=== PATIENT | male | born 2000 | race Caucasian/White ===

== ENCOUNTER 2020-10-03 12:39 | Emergency (ER) | payer SELFPAY ==
[2020-10-03 12:40] VITALS: BP 112/58; PULSE 73; RESP 15; TEMP 36.6; O2SAT 97; BMI 28.7
--- NOTE | 2020-10-03 12:48 | EX.ED.VIS.PS ---
HPI HPI - Psych History of Present Illness Chief Complaint: Mental Health Narrative Narrative: 19-year-old male with history of depression presenting with suicidal ideation. He has a plan to shoot himself with his gun. He denies taking any medication. He denies homicidal ideation. He states he just does not have any love for himself and his heart. PFSH PFSH Medical History Depression Hernia Home Medications NK 10/03/20 [History Last Taken Unknown] Allergy/AdvReac Type Severity Reaction Status Date / Time No Known Allergies Allergy Verified 10/03/20 12:44 Social History Smoking Status: Current every day smoker tobacco type: cigarettes ROS ROS ED Constitutional Constitutional ED: Denies chills, fever(s) or subjective Eyes Eyes: Denies blurry vision or diplopia ENT ENT ED: Denies rhinorrhea or sore throat Cardiovascular Cardiovascular: Denies chest pain or palpitations Respiratory/Chest Respiratory/Chest: Denies cough or dyspnea Gastrointestinal Gastrointestinal: Denies abdominal pain, nausea or vomiting Genitourinary Genitourinary ED: Denies dysuria or hematuria Musculoskeletal Musculoskeletal: Denies arthralgias or myalgias Integumentary Denies abscess or rash Neurologic Neurologic: Denies headache(s) or paresthesias Psychiatric Psychiatric: Reports depression, suicidal ideation and suicidal thoughts EXAM Physical Exam Const Vital Signs: 10/03/20 12:40 Temperature 97.9 F Temperature Source Temporal Pulse Rate 73 Respiratory Rate 15 Blood Pressure 112/58 L Blood Pressure Mean 76 Pulse Ox 97 Oxygen Delivery Method Room Air Positive well nourished General Appearance ED: NAD HEENT Reports moist mucous membranes normocephalic and atraumatic Eyes PERRL and EOMs intact bilaterally Resp normal respiratory effort and clear to auscultation bilaterally Cardio Rate: regular rate Rhythm: regular rhythm Neuro oriented x3 Sensorium / Orientation: alert and oriented to person Psych denies hallucinations and denies homicidal ideation Psych Narrative: Flat affect Thought Content: suicidality Attention / Concentration: attention grossly intact Memory / Cognition: memory grossly intact Insight: poor Judgement: poor Skin Lesions: no lesions Rashes: no rashes MDM MDM MDM Narrative Medical decision making narrative: Patient presenting with suicidal ideation and plan to shoot himself in the head with a gun. I feel the patient would benefit from inpatient therapy. His lab work-up today is unremarkable. Urine drug screen is negative. EtOH is negative. Patient is medically clear at this time for psychiatric evaluation. Patient was evaluated by social work and they also feel patient would benefit from inpatient therapy. She is currently looking for a bed for him. Patient will be signed out to incoming ED physician for monitoring until transfer can be completed Impression: 1. Suicidal ideation Lab Data Labs: Laboratory Results - last 24 hr 10/03/20 10/03/20 10/03/20 13:05 13:30 13:30 WBC 7.8 RBC 5.87 Hgb 15.8 Hct 49.6 MCV 84.5 MCH 26.9 L MCHC 31.9 L RDW Std Deviation 37.1 RDW Coeff of Kimberly 12.1 Plt Count 247 MPV 11.1 Immature Gran % (Auto) 0.300 Neut % (Auto) 68.8 Lymph % (Auto) 18.8 L Charlotte % (Auto) 6.7 Eos % (Auto) 4.5 Baso % (Auto) 0.9 Absolute Neuts (auto) 5.4 Absolute Lymphs (auto) 1.46 Nucleated RBC % 0 Sodium 138 Potassium 4.1 Chloride 102 Carbon Dioxide 30.0 Anion Gap 6 BUN 12 Creatinine 1.03 Estim Creat Clear Calc 118.12 Est GFR (MDRD) Af Amer 117 Est GFR (MDRD) Non-Af 97 BUN/Creatinine Ratio 11.7 Glucose 93 Calcium 9.4 Urine Opiates Screen NEGATIVE Urine Methadone Screen NEGATIVE Ur Barbiturates Screen NEGATIVE Ur Phencyclidine Scrn NEGATIVE Ur Amphetamines Screen NEGATIVE U Methamphetamin-MDMA NEGATIVE U Benzodiazepines Scrn NEGATIVE Urine Cocaine Screen NEGATIVE U Cannabinoids Screen NEGATIVE Ur Drug Screen Comment Ethyl Alcohol 10/03/20 13:30 WBC RBC Hgb Hct MCV MCH MCHC RDW Std Deviation RDW Coeff of Kimberly Plt Count MPV Immature Gran % (Auto) Neut % (Auto) Lymph % (Auto) Charlotte % (Auto) Eos % (Auto) Baso % (Auto) Absolute Neuts (auto) Absolute Lymphs (auto) Nucleated RBC % Sodium Potassium Chloride Carbon Dioxide Anion Gap BUN Creatinine Estim Creat Clear Calc Est GFR (MDRD) Af Amer Est GFR (MDRD) Non-Af BUN/Creatinine Ratio Glucose Calcium Urine Opiates Screen Urine Methadone Screen Ur Barbiturates Screen Ur Phencyclidine Scrn Ur Amphetamines Screen U Methamphetamin-MDMA U Benzodiazepines Scrn Urine Cocaine Screen U Cannabinoids Screen Ur Drug Screen Comment Ethyl Alcohol < 3.0 Discharge Plan Triage Chief Complaint: Mental Health ED Provider: Douglas Logan Dx/Rx/DC Orders Prescriptions: No Action NK RF: 0 Primary Care Provider: Care Physician,No Primary
--- NOTE | 2020-10-03 13:21 | ED.RN ---
PT STATES HE HAS BEEN DEPRESSED, FEELS EMPTY INSIDE FOR PAST 3 YEARS. STATES GOD LEFT ME AND HE'S STRUGGLED SINCE. PT ADMITS TO HAVING FREQUENT SUICIDAL THOUGHT, HAS PLAN OF EITHER SHOOTING SELF WITH A GUN OR HANGING SELF. PT HAS ACCESS TO GUNS, HAS GOTTEN A GUN AND HELD IT IN WITH THE PLAN OF SHOOTING SELF IN THE PAST YEAR. PT STATES HE'S GOTTEN WORSE SINCE YESTERDAY, I KNEW IF I DIDN'T GET HELP I WOULD KILL MYSELF TODAY. PT STATES HE HADN'T DECIDED IF HE WOULD USE GUN OR HANGING FOR ATTEMPT TODAY. PT REMAINS COOPERATIVE. DOES NOT WANT TO HAVE VISITORS TODAY THOUGH.
[2020-10-03 13:40] LABS: Absolute Lymphocyte Count 1.46 X10^3/uL (0.83-4.51); Absolute Neutrophil Count 5.4 X10^3/uL (2.0-7.7); Basophil# 0.07 X10^3/uL; Basophil% 0.9 % (0-1); Eosinophil# 0.35 X10^3/uL; Eosinophils% 4.5 % (0-5); Hematocrit 49.6 % (40-54); Hemoglobin 15.8 g/dL (13.0-16.5); Lymphocyte # 1.46 X10^3/ul (0.83-4.51); Lymphocyte % 18.8 % (19-41); Mean Corp Hgb Conc 31.9 g/dL (32-36); Mean Corpuscular Hgb 26.9 pg (27.0-32.0); Mean Corpuscular Volume 84.5 fL (80-94); Mean Platelet Vol. 11.1 fl (6.2-12.0); Monocyte# 0.52 X10^3/uL; Monocyte% 6.7 % (0-10); NRBC Flagged by Analyzer 0 % (0-5); Neutrophil # 5.36 X10^3/uL (2.7-7.7); Neutrophil % 68.8 % (47-70); Platelet Count 247 K/mm3 (150-450); RBC Distribution Width CV 12.1 % (11.6-14.6); RBC Distribution Width SD 37.1 fl (35.1-43.9); Red Blood Count 5.87 M/mm3 (4.6-6.2); White Blood Count 7.8 K/mm3 (4.4-11.0)
[2020-10-03 13:50] LABS: Anion Gap 6 (5-15); BUN 12 mg/dL (7-18); BUN/Creat Ratio 11.7 RATIO (10-20); Calcium,Total 9.4 mg/dL (8.5-10.1); Chloride 102 mmol/L (98-107); Creatinine, Serum 1.03 mg/dL (0.70-1.30); EST Glomerular Filtration Rate 97 mL/min (>60); Est Glom Filt Rate - Afr Amer 117 mL/min (>60); Estimated Creatinine Clearance 118.12 ml/min; Glucose 93 mg/dL (74-106); Potassium 4.1 mmol/L (3.5-5.1); Sodium Level 138 mmol/L (136-145)
[2020-10-03 13:53] LABS: Amphetamine Urine VISTA NEGATIVE (<1000 ng/mL); Barbiturate Urine VISTA NEGATIVE (< 200 ng/mL); Benzodiazepine Urine VISTA NEGATIVE (< 200 ng/mL); Cocaine Urine VISTA NEGATIVE (< 300 ng/mL); Ecstacy Urine VISTA NEGATIVE (< 500 ng/mL); Methadone Urine VISTA NEGATIVE (< 300 ng/mL); PCP Urine VISTA NEGATIVE (< 25 ng/mL); THC Urine VISTA NEGATIVE (< 50 ng/mL); Vista UDS pH Range 6
[2020-10-03 14:12] LABS: Alcohol, Blood (Medical)-Serum < 3.0 mg/dL
--- NOTE | 2020-10-03 14:30 | CM.ED ---
SOCIAL WORK ASSESSMENT Referral Source: Reason for Consult: Mental Health Chief Compliant: Patient presents to the ED and when asked about patient?s current presentation he said he felt suicidal. Patient confirms that he is currently feeling suicidal. Patient said that he has felt suicidal ?on and off? for 3 years. Patient was asked about his presentation to the ED today and patient said, ?I was feeling suicidal... that?s it? and indicated he called the crisis line and the police brought him to the ED. Patient was asked about a plan and he said, ?a gun or rope?. Marital/Social History: Single Living Situation: Patient resides in a house with his family that includes his parents and brothers and sisters. Patient has 15 brothers and sisters. Patient said that his parents are Scientologist. Patient was asked if he considers himself Scientologist and he said, ?I guess?. Support/Resources: Patient reports that his family is his support. Patient said that his mother knew he was coming to the Emergency Room. History: None Education and Employment History: Patient reports that the last grade he attended was the 8th grade. He reports no learning issues or delays. 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 Mental Health Treatment/History: Patient reports that he was seeing a counselor at [facility] named Saman. He has not seen a counselor for a ?couple of months?. Patient said that he previously was hospitalized at [facility] for period of 2 weeks in the past. Patient reports that he was previously on Zyprexa, Prozac and Seroquel. Patient reports that he has not been on medication for a ?couple of months?. Triggers/Stressors: Patient said that his stressors are ?God and going to hell?. Patient said that he worries about ?going to hell?. SW asked why patient is worried about going to hell and he said, ?because Gods? done with me?. Patient was asked about why he believes that God is done with him, and patient said, ?I rejected him?. Coping Skills: Patient said that his coping skills are ?nothing good?. Patient said, ?I go on my phone and do bad stuff on there?. SW asked what ?bad stuff? patient is referring to and he said ?pornography?. Patient said that his use of pornography has been ?worse lately?. Patient said that he has ?tried everything else but nothing works?. Abuse Issues: Patient reports no past or current abuse issues. Substance Abuse History: Patient denied any drugs or alcohol use. Risk to Self/Others: Suicidal- Patient reports he is currently suicidal. He reports his plan includes a rope or gun. Patient reports his intent, on Bassam scale of 1-10 with 1 being low and 10 being high patient reports his intent is number 8. Patient repots that in the past he held a gun to his head. SW asked what stopped him in the past, when holding a gun, and he said, ?fear of ?. Homicidal- Patient denied Violence- Patient denied Mental Status Exam: Orientation- x4 Memory: Intact Appearance/General Behavior: Clean wearing street clothes. Hygiene appropriate. Mood/Affect: Mood depressed and flat affect. No eye contact with this promotion writer. Thought Process: Logical and linear. Answers questions General Intellectual Functioning: Average Judgement: Poor Insight: Limited Assessment: SW met with patient. He reports that he is currently feeling suicidal. Patient voices high intent and lethal plan (gun or rope) which makes him at high risk for self-harm and thus psychiatric placement is necessary for him to ensure his safety and restart his medication. Patient reports that he has access to a gun, which he reports is at his home. Patient reports that he has been sleeping 5-6 hours at night and ?never? feels rested. No weight changes. Patient reports he believes ?we all have depression except the little ones? when asked about family history of depression. Patient said that his current mood is ?sad?. Patient was asked about anxiety and patient reports ?I don?t have a future... I worry about going to hell?. Patient reports no psychosis. Patient reports feeling hopeless, helpless and worthless. Patient was asked what would make patient feel safe and he said ?I don?t feel safe?. Clovis... I am not sure if he likes me or not.? Patient was asked about his future, and he said, ?there are things I would want? like having a relationship with God... that is the only thing I want?. Plan: Inpatient psych hospitalization Laureen RANDALL
--- NOTE | 2020-10-03 14:30 | CM.ED ---
Addendum entered by Laureen Bauer 10/03/20 15:22: GIOVANI received call back from Devyn at [facility] in [place]. Devyn said that they have no beds and since the patient would need ambulance transport he would not be appropriate for their inpatient psych at the present due to needing ambulance from [place] to [place]. Devyn, who is [facility], said that patient could call him after discharge from inpatient psych and he could speak to him about their programming at [facility] and [facility]. Devyn said that [facility] is a residence in [facility] that is staffed by [facility] and all [facility] with [facility] providing the psychiatric treatment. Devyn said that [facility] is in [facility] and is staffed by [facility]. The average Length of Stay is 5-8 weeks based on the individuals needs. The contact for [facility] is Adela Herbert [phone]. GIOVANI called Adela Herbert for information. He was in meeting but call this database report writer back. Original Note: GIOVANI Note SW called Mar[facility] at [facility]) crisis. She said that [facility] that need psych placement can go anywhere. Marisol said that [facility] reports that the hospital doesn't need to do anything with financial as the hospital will coordinate the patient getting to the setting. Marisol said that the last [facility] patient they had went to [facility]. GIOVANI called [facility] treatment in [place] and left voice mail for Ariel Shepard Advocate to call this database report writer for information. GIOVANI called Chaplain Hand and asked that he speak to patient. GIOVANI updated RN. Plan: Inpatient psych placement Laureen RANDALL
--- NOTE | 2020-10-03 15:11 | CHAPLAIN ---
Type of Pastoral Visit _x__ Initial Visit ___ Follow-up Visit ___ On-call Visit ___ General Patient Visit ___ Spiritual Assessment ___ Family Conference ___ Bereavement ___ Rapid Response ___ Code Blue ___ Other (describe below) Pastoral Care Referral From ___ Patient ___ Family _x__ Nurse ___ Physician _x__ Data Lead ___ Baseball Hand Sewer ___ Other (describe below) Sacrament/Intervention _x__ Active listening ___ Anointing ___ Mosque ___ Bereavement ___ Communion _x__ Isabella exploration ___ _x__ Life review _x__ Prayer ___ Reconciliation ___ Sacrament of Sick _x__ Supportive presence ___ Wedding ___ Other (describe below) Pastoral Comments patient referred from GIOVANI and RN due to mormon issues expressed in his admission for suicidal ideation; pt is of the Ariel community but has thoughts of God's rejection of him and his rejection of God; long time given to listen to the feelings and concerns of the pt; this concrete mixer loader truck mounted addressed these concerns based on the pt's desire for spiritual understanding; pt welcomed the support and the prayer; pt himself also prayed for himself; pt acknowledges the possibility of hope for himself at end of this encounter;
--- NOTE | 2020-10-03 15:14 | CM.ED ---
SW Note SW met with patient. Explained that [facility] had stated that they had sent a patient, with similiar cultural heritage to [facility]. SW explained locaiton of [facility]. SW advised that there was a psychiatric placement in [place] called [facility]a [facility] that this song writer could make a referral to for patient. Patient said to pursue referral to [facility]. SW discussed programs of [facility] and how they have a stepdown after inpatient hospitalization. Patient said that he was in a similar program in [place]. Patient said that the program was beneficial. GIOVANI called Macey at [facility] to make a referral. SW faxed referral packet to [facility]. SW provided patient with web site information on Jennifer and the [facility] Advocate Devyn at [facility] [phone] who he can call upon discharge from psychiatric hospital. Patient verbalized understanding. Plan: Inpatient psych
--- NOTE | 2020-10-03 17:18 | CM.ED ---
GIOVANI Note Placement FOllow up: GIOVANI called Macey at [facility]. They are still reviewing the case. GIOVANI received call from Candis at [facility]. Patient has been accepted. However, they need verification that the bill will be paid. Patient will call his neighbor to get his parents and his parents will speak to him to get contact for who will verify payment . RN and costumer assistant updated. GIOVANI called Marisol at [facility]. Marisol said that the [facility] placement they did single case but at the end of treatment the patient put it on the credit card. Marisol said that there is no money for single case and the [facility] would have to pay for it so it would be pointless. GIOVANI updated patient as to he was accepted at [facility] but we are needing financial verification for patient. Patient called his neighbor and his neighbor called his mother. Patient gave this process description writer permission to speak to his mother, Linda. GIOVANI updated Linda about what was happening. She said that in the past they have had the [employer] sign papers for financial responsibility. Linda said that she would call [facility]. Linda said she could get a tier truck driver to come into the hospital. Linda advised she would call [facility] and speak to Lety about payment arrangements. GIOVANI updated parties. GIOVANI called Lety at [facility]. She had spoken to patient's mother and the mother had put the money, $4200, on her [employer] credit card. Patient is accepted for [facility]. GIOVANI updated costumer assistant, RN and patient about acceptance. Mayuri called [facility] and contacted them regarding payment for patient's transport. Marcela Stern called [facility] to see if they could assist with transport. Information about patient follow up provider, Scott Herbert from [facility] was included in patient's packet for discharge. Patient accepted at [facility]. Accepting MD is Dr. Thibodeaux. RN to RN is [phone]. Plan: Discharge to [facility] Laureen RANDALL
[2020-10-03 18:07] VITALS: BP 125/77; PULSE 83; RESP 12
[2020-10-03 19:40] VITALS: RESP 12
--- NOTE | 2020-10-03 19:55 | ED.RN ---
report given Giulia.
[2020-10-03 19:56] VITALS: BP 123/71; PULSE 61; RESP 14; O2SAT 99
--- NOTE | 2020-10-03 20:16 | CM.ED ---
GIOVANI Note RN called and advised that [facility] would not pay for transport for patient. SW called Anusha, the Satellite Dish Technician, and inquired about plan for discharge for patient. Anusha called [facility] and there was no issues with patient's family being jose david and family being billed for service, per Anusha. No further SW services needed at this time. Laureen RANDALL
== END 2020-10-03 20:55 ==
LOC: ED 13:24
PROVIDERS: Emergency Provider Student in an Organized Health Care Education/Training Program
DX: R45.851 Suicidal ideations (principal); F17.210 Nicotine dependence, cigarettes, uncomplicated
CPT/HCPCS: 80048; 80307; 82077; 85025; 87426; 99285

== ENCOUNTER 2022-09-02 17:30 | Emergency (ER) | payer OTHER, SELFPAY ==
[2022-09-02 17:31] VITALS: BP 126/86; PULSE 85; RESP 16; TEMP 36.2; O2SAT 95; BMI 34.9
[2022-09-02 18:26] LABS: Absolute Lymphocyte Count 3.18 X10^3/uL (0.83-4.51); Basophil% 0.9 % (0-1); Eosinophil# 0.39 X10^3/uL; Eosinophils% 3.7 % (0-5); Hematocrit 50.6 % (40-54); Hemoglobin 16.5 g/dL (13.0-16.5); Lymphocyte # 3.18 X10^3/ul (0.83-4.51); Lymphocyte % 29.9 % (19-41); Mean Corp Hgb Conc 32.6 g/dL (32-36); Mean Corpuscular Hgb 26.4 pg (27.0-32.0); Mean Corpuscular Volume 81.1 fL (80-94); Mean Platelet Vol. 10.6 fl (6.2-12.0); Monocyte# 0.98 X10^3/uL; Monocyte% 9.2 % (0-10); NRBC Flagged by Analyzer 0 % (0-5); Neutrophil # 5.96 X10^3/uL (2.7-7.7); Neutrophil % 55.9 % (47-70); Platelet Count 328 K/mm3 (150-450); RBC Distribution Width CV 12.5 % (11.6-14.6); RBC Distribution Width SD 36.6 fl (35.1-43.9); Red Blood Count 6.24 M/mm3 (4.6-6.2); White Blood Count 10.7 K/mm3 (4.4-11.0)
[2022-09-02 18:34] LABS: Anion Gap 8 (5-15); BUN 18 mg/dL (7-18); BUN/Creat Ratio 20.8 RATIO (10-20); Calcium,Total 9.6 mg/dL (8.5-10.1); Chloride 107 mmol/L (98-107); Creatinine, Serum 0.87 mg/dL (0.70-1.30); EST Glomerular Filtration Rate 116 mL/min (>60); Est Glom Filt Rate - Afr Amer 141 mL/min (>60); Estimated Creatinine Clearance 137.52 ml/min; Glucose 95 mg/dL (74-106); Potassium 3.8 mmol/L (3.5-5.1); Sodium Level 137 mmol/L (136-145)
[2022-09-02 18:42] LABS: Alcohol, Blood (Medical)-Serum < 3.0 mg/dL
--- NOTE | 2022-09-02 19:21 | CM.ED ---
Social Work SW introduced self and role to patient. Patient denies having any insurance or [facility] Funds to help with payment if psychiatric placement is necessary. Pt endorses SI with a plan currently. SW called crisis and faxed patient information to crisis for crisis to evaluate patient. Pt has high likelihood of needing placement and will need [facility] funding for psychiatric placement. Belen Chopra MSW, WIREWORKER SUPERVISOR
--- NOTE | 2022-09-02 19:23 | EKG12_ITS ---
Test Reason : [facility] Blood Pressure : / mmHG Vent. Rate : 086 BPM Atrial Rate : 086 BPM P-R Int : 148 ms QRS Dur : 088 ms QT Int : 372 ms P-R-T Axes : 033 048 033 degrees QTc Int : 445 ms Normal sinus rhythm Normal ECG Confirmed by DIANA SAAVEDRA, JOLENE ([id number]), medical transcription editor ELENO BERNABE ([id number]) on 09/04/2022 8:08:26 AM Referred By: Confirmed By:JOLENE ORTIZ MD
[2022-09-02 19:40] LABS: Bacteria 0 SEEN /hpf (None Seen); Red Blood Cells-Urine 0 SEEN /hpf (0-5); White Blood Cells 0 SEEN /hpf (0-5)
[2022-09-02 19:41] LABS: Color, Urine Yellow (Yellow); Glucose, Dipstick Normal (Normal); Ketone-Dipstick 50 mg/dl (Negative); Leukocyte Esterase-Dipstick Negative /ul (Negative); Nitrite-Dipstick Negative (Negative); Occult Blood-Urine Negative /ul (Negative); Protein-Dipstick 15 mg/dl (Negative); Specific Gravity, Urine 1.025 (1.002-1.030); Urine Bilirubin Dipstick Negative (Negative); Urine Clarity Clear (Clear); Urine Urobilinogen Normal (Normal)
[2022-09-02 19:46] LABS: Mucous, Urine RARE /hpf (<or=2+); Squamous Epithelial Cells - UA 0-5 SEEN /hpf (0-5)
[2022-09-02 19:50] LABS: Amphetamine Urine VISTA NEGATIVE (<1000 ng/mL); Barbiturate Urine VISTA NEGATIVE (< 200 ng/mL); Benzodiazepine Urine VISTA NEGATIVE (< 200 ng/mL); Cocaine Urine VISTA NEGATIVE (< 300 ng/mL); Ecstacy Urine VISTA NEGATIVE (< 500 ng/mL); Methadone Urine VISTA NEGATIVE (< 300 ng/mL); PCP Urine VISTA NEGATIVE (< 25 ng/mL); THC Urine VISTA NEGATIVE (< 50 ng/mL); Vista UDS pH Range 6
--- NOTE | 2022-09-02 23:34 | EDS_ITS ---
HPI HPI - Psych History of Present Illness Chief Complaint: Suicidal Informant: patient Onset/Context/Timing Onset: Month(s) Context: Gradual Onset Timing: Continuous Worsened by: - (Nothing) Relieved by: Nothing Associated Symptoms Associated Symptoms - Psych: Positive for Depressed, Change in Eating and Suicidal Thoughts; Negative for Paranoia, Visual Hallucinations or Auditory Hallucinations Specific plan (suicidal thought): Shooting himself with a gun Narrative Narrative: Patient presents with depression and suicidal ideation that has been getting worse over the past few months. Patient states it is gradually getting worse. Patient states he has had thoughts of shooting himself with a gun. Patient states nothing makes it better nothing makes it worse. Patient admits to a decrease in his eating. Patient denies any visual or auditory hallucinations. Patient denies any paresthesias or weakness. Patient denies any other symptoms. PFSH PFS Medical History (Updated 09/02/22 @ 23:[address] Ruiz Kennedy DO) Depression Hernia Home Medications NK 10/03/20 [History Last Taken Unknown] Allergy/AdvReac Type Severity Reaction Status Date / Time No Known Allergies Allergy Verified 10/03/20 12:44 Family History no significant family his Surgical History (Updated 09/02/22 @ 23:[address] Ruiz Kennedy DO) History of herniorrhaphy Social History Smoking Status: Current every day smoker tobacco type: cigarettes ROS ROS ED Constitutional Constitutional ED: Denies chills or fever(s) Eyes Eyes: Denies blurry vision or change in vision ENT ENT ED: Denies rhinorrhea or sore throat Cardiovascular Cardiovascular: Denies chest pain or palpitations Respiratory/Chest Respiratory/Chest: Denies cough or dyspnea Gastrointestinal Gastrointestinal: Denies nausea or vomiting Genitourinary Genitourinary ED: Denies dysuria or hematuria Musculoskeletal Musculoskeletal: Denies back pain or neck pain Integumentary Denies abscess or rash Neurologic Neurologic: Denies headache(s) or weakness Psychiatric Psychiatric: Reports depression, suicidal ideation and suicidal thoughts Allergic/Immunologic Allergic/Immunologic ED: Denies mouth swelling or urticaria EXAM Physical Exam Const Vital Signs: 09/02/22 17:31 Temperature 97.2 F L Temperature Source Temporal Pulse Rate 85 Respiratory Rate 16 Blood Pressure 126/86 H Blood Pressure Mean 99 Pulse Ox 95 Oxygen Delivery Method Room Air Positive well nourished and well developed General Appearance ED: well developed HEENT normocephalic and atraumatic Neck supple and no JVD Resp normal respiratory effort and clear to auscultation bilaterally Cardio no murmurs Rate: regular rate Rhythm: regular rhythm GI non-tender and non-distended Auscultation: normoactive bowel sounds Palpation: soft Extremity normal to inspection General Extremety ED: Negative for edema or tenderness General Extremity: Negative for edema Neuro oriented x3, CN's II-XII intact bilaterally and no sensory deficits noted Sensorium / Orientation: alert Motor Exam: strength 5/5 throughout Psych mental status grossly normal Activity / Motor Behavior: avoids eye contact Speech: minimal and soft Mood & Affect: depressed and flat affect Thought Content: suicidality and No hallucination(s) Skin Rashes: no rashes MDM MDM MDM Narrative Medical decision making narrative: Basic labs will be obtained for medical clearance for psychiatric placement. CBC will be obtained to assess for leukocytosis and anemia. Basic metabolic profile will be obtained to assess for electrolyte abnormality and renal function. Urinalysis will be obtained to assess for urinary tract infection and hematuria. Urine tox screen will be obtained to assess for substance abuse. Serum alcohol level will be obtained to assess for alcohol intoxication. COVID- 19 rapid antigen will be obtained to assess for COVID-19 infection. EKG will be obtained to assess for cardiac dysrhythmia and QT prolongation. Lab Data Attestation: I reviewed the patient's lab results. Lab results narrative: CBC was reviewed and was within normal limits. Basic metabolic profile was reviewed and was within normal limits. Urinalysis was reviewed and was within normal limits. Serum alcohol level was reviewed and was less than 3.0. Urine tox screen was reviewed and was negative. COVID-19 rapid antigen was reviewed and was negative. Labs: Laboratory Results - last 24 hr 09/02/22 09/02/22 09/02/22 18:05 18:05 18:05 WBC 10.7 RBC 6.24 H Hgb 16.5 Hct 50.6 MCV 81.1 MCH 26.4 L MCHC 32.6 RDW Std Deviation 36.6 RDW Coeff of Kimberly 12.5 Plt Count 328 MPV 10.6 Immature Gran % (Auto) 0.400 Neut % (Auto) 55.9 Lymph % (Auto) 29.9 Wilkinson % (Auto) 9.2 Eos % (Auto) 3.7 Baso % (Auto) 0.9 Absolute Neuts (auto) 6.0 Absolute Lymphs (auto) 3.18 Nucleated RBC % 0 Sodium 137 Potassium 3.8 Chloride 107 Carbon Dioxide 22.0 Anion Gap 8 BUN 18 Creatinine 0.87 Estim Creat Clear Calc 137.52 Est GFR (MDRD) Af Amer 141 Est GFR (MDRD) Non-Af 116 BUN/Creatinine Ratio 20.8 H Glucose 95 Calcium 9.6 Urine Color Urine Clarity Urine pH Ur Specific [place] Urine Protein Urine Glucose (UA) Urine Ketones Urine Occult Blood Urine Nitrite Urine Bilirubin Urine Urobilinogen Ur Leukocyte Esterase Urine RBC Urine WBC Ur Squamous Epith Cells Urine Bacteria Urine Mucus Urine Opiates Screen Urine Methadone Screen Ur Barbiturates Screen Ur Phencyclidine Scrn Ur Amphetamines Screen MDMA (Ecstasy) Screen U Benzodiazepines Scrn Urine Cocaine Screen U Cannabinoids Screen Ur Drug Screen Comment Ethyl Alcohol < 3.0 09/02/22 09/02/22 19:25 19:25 WBC RBC Hgb Hct MCV MCH MCHC RDW Std Deviation RDW Coeff of [place] Plt Count MPV Immature Gran % (Auto) Neut % (Auto) Lymph % (Auto) Wilkinson % (Auto) Eos % (Auto) Baso % (Auto) Absolute Neuts (auto) Absolute Lymphs (auto) Nucleated RBC % Sodium Potassium Chloride Carbon Dioxide Anion Gap BUN Creatinine Estim Creat Clear Calc Est GFR (MDRD) Af Amer Est GFR (MDRD) Non-Af BUN/Creatinine Ratio Glucose Calcium Urine Color Yellow Urine Clarity Clear Urine pH 6.0 Ur Specific [place] 1.025 Urine Protein 15 H Urine Glucose (UA) Normal Urine Ketones 50 H Urine Occult Blood Negative Urine Nitrite Negative Urine Bilirubin Negative Urine Urobilinogen Normal Ur Leukocyte Esterase Negative Urine RBC 0 SEEN Urine WBC 0 SEEN Ur Squamous Epith Cells 0-5 SEEN Urine Bacteria 0 SEEN Urine Mucus RARE Urine Opiates Screen NEGATIVE Urine Methadone Screen NEGATIVE Ur Barbiturates Screen NEGATIVE Ur Phencyclidine Scrn NEGATIVE Ur Amphetamines Screen NEGATIVE MDMA (Ecstasy) Screen NEGATIVE U Benzodiazepines Scrn NEGATIVE Urine Cocaine Screen NEGATIVE U Cannabinoids Screen NEGATIVE Ur Drug Screen Comment Ethyl Alcohol EKG Initial EKG: Attestation: I personally reviewed and interpreted this EKG as follows: Interpretation: Sinus Rhythm (86) and No Acute Injury Pattern Comments: EKG was obtained. On my independent interpretation, it showed a normal sinus rhythm with a rate of 86. [place] interval, QRS interval, and QTc intervals were all normal. [place] was normal. There are no acute ST or T wave changes. 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 Crisis counselor will be in to evaluate the patient. I feel the patient would likely need to be admitted to a psychiatric facility for further management of his depression and suicidal ideation. Care of the patient was turned over to the oncoming physician pending psychiatric placement. Discharge Plan Triage Chief Complaint: Suicidal Other Complaint: Mental Health ED Provider: Ruiz Kennedy Dx/Rx/DC Orders Clinical Impression: Suicidal ideations, Depression Prescriptions: No Action NK Primary Care Provider: Joe Lauren Referrals: Joe Lauren DO [Primary Care Provider] - Disposition Disposition: Psychiatric Hospital or Unit
[2022-09-03] VITALS (8 sets, daily range): BP systolic 109–121; BP diastolic 65–81; PULSE 70–90; RESP 16–18; O2SAT 94–98
--- NOTE | 2022-09-03 12:17 | ED.RN ---
0900 PER CRISIS UPDATE. PT INFORMATION SENT TO [facility], PT ON WAITING LIST.
--- NOTE | 2022-09-03 12:28 | ED.RN ---
PT REQUESTING LUNCH. Moreno IRVIN RN TO CALL FOR LUNCH TRAY.
[2022-09-04 01:00] VITALS: RESP 16
[2022-09-04 04:37] VITALS: RESP 16
[2022-09-04 07:02] VITALS: BP 115/71; PULSE 78; RESP 18; O2SAT 98
--- NOTE | 2022-09-04 09:18 | NURSING ---
[facility] CALLED WITH ACCEPTANCE TO THEIR FACILITY- DR PAZ- [address]- RN TO RN [phone]-- CALLED PHYSICIANS TO SET UP TRANSPORT ETA GIVEN WAS 30 MINUTES- [id number]
--- NOTE | 2022-09-04 09:25 | ED.RN ---
Updated pt. that his squad to take him to [facility] would be here about 10 am. Pt. states I did not need to call anyone for him. No other needs at this time
--- NOTE | 2022-09-04 09:52 | ED.RN ---
left a message with Ying at [facility] to give report.
--- NOTE | 2022-09-04 09:59 | ED.RN ---
Report given Ying at [facility]
== END 2022-09-04 10:00 ==
PROVIDERS: Emergency Provider Emergency Medicine; PCP Family Medicine; Visit Provider Emergency Medicine
DX: R45.851 Suicidal ideations (principal); F32.A Depression, unspecified; F17.210 Nicotine dependence, cigarettes, uncomplicated
CPT/HCPCS: 80048; 80307; 81001; 82077; 85025; 87811; 93005; 99285